=== PATIENT | female | born 1980 | race Caucasian/White ===

== ENCOUNTER 2021-09-20 22:13 | Emergency (ER) ==
[~2021-09-20] VITALS: Ht 162.6 cm; Wt 78.4 kg
[2021-09-20] MEDS ORDERED: LORA2TAB14 PO (22:30)
[2021-09-20] MEDS ORDERED: FAMO40TA3 PO (22:30)
[2021-09-20] MEDS ORDERED: ACET-683 PO (22:30)
[2021-09-20] MEDS ORDERED: GAST100C PO (22:30)
[2021-09-20] MEDS ORDERED: HYDR-3363 PO (22:30)
[2021-09-20] MEDS ORDERED: GOOD1POW4 PO (22:30)
[2021-09-20] MEDS ORDERED: TRAM50TA2 PO (22:41)
[2021-09-20] MEDS ORDERED: diphenhydramine IV (22:41)
== END 2021-09-21 00:50 | disposition left against medical advice (07) ==
LOC: M ED 22:13
DX: Z53.21 Procedure and treatment not carried out due to patient leaving prior to being seen by health care provider (principal)

== ENCOUNTER 2021-12-01 05:56 | Inpatient (IN) | payer BC ==
[~2021-12-01] VITALS: Ht 165.1 cm; Wt 80.8 kg
[~2021-12-01 05:56] MED LIST: ACET-683 PO; FAMO40TA3 PO; GAST100C PO; GOOD1POW4 PO; HYDR-3363 PO; LORA2TAB14 PO; TRAM50TA2 PO; diphenhydramine IV
[2021-12-01 08:30] LABS: RSV AMPLIFICATION NEGATIVE (NEGATIVE)
[2021-12-01 10:28] LABS: BASO % 0.2 % (0.0-1.0); HEMATOCRIT 40.5 % (36.0-47.0); HEMOGLOBIN 13.6 g/dl (12.0-15.5); LYMPH # 0.5 10^3/uL (1.5-5.0); MEAN CORPUSCULAR HEMOGLOBIN 28.5 pg (27.0-33.0); MEAN CORPUSCULAR HGB CONC 33.6 g/dl (32.0-36.5); MEAN CORPUSCULAR VOLUME 84.7 fl (80.0-96.0); MONO # 0.9 10^3/uL (0.0-0.8); MONO % 7.7 % (2.0-8.0); NEUTROPHILS # 9.7 10^3/uL (1.5-8.5); NEUTROPHILS % 87.1 % (36.0-66.0); PLATELET COUNT, AUTOMATED 213 10^3/uL (150-450); RED BLOOD COUNT 4.78 10^6/uL (4.00-5.40); WHITE BLOOD COUNT 11.2 10^3/uL (4.0-10.0)
[2021-12-01] MEDS ORDERED: NS 1,000 ML IV ONE ×2 (11:25→19:00)
[2021-12-01 12:06] LABS: ERYTHROCYTE SEDIMENTATION RATE 6 mm/hr (0-20)
[2021-12-01] MEDS ORDERED: ceFAZolin SOD 2 GM in IV 1 EA IV ONE (12:25)
[2021-12-01 15:18] LABS: ALBUMIN 3.7 GM/DL (3.2-5.2); ALT/SGPT 218 U/L (12-78); BILIRUBIN,DIRECT 0.2 MG/DL (0.0-0.2); BILIRUBIN,TOTAL 0.8 MG/DL (0.2-1.0); BLOOD UREA NITROGEN 14 MG/DL (7-18); C REACTIVE PROTEIN QUANTITATIV 4.61 MG/DL (0.00-0.30); CALCIUM LEVEL 8.9 MG/DL (8.5-10.1); CARBON DIOXIDE LEVEL 24 MEQ/L (21-32); CHLORIDE LEVEL 107 MEQ/L (98-107); CREATININE FOR GFR 1.03 MG/DL (0.55-1.30); GLOMERULAR FILTRATION RATE > 60.0 (>58); GLUCOSE, FASTING 113 MG/DL (70-100); POTASSIUM SERUM 3.9 MEQ/L (3.5-5.1); SODIUM LEVEL 138 MEQ/L (136-145); TOTAL PROTEIN 7.3 GM/DL (6.4-8.2)
[2021-12-01] MEDS ORDERED: NORCO, ANEXSIA 5/325MG TABLET (HYDROcodone/ACETAMINOPHEN) PO ONE (16:05)
[2021-12-01] MEDS ORDERED: ceFAZolin 1GM VIAL (J0690 PER 500MG) IM ONE (16:05)
[2021-12-01] MEDS ORDERED: ACETAMINOPHEN TAB 650MG DOSE (2X325MG) PO PRN (19:20)
[2021-12-01] MEDS ORDERED: LINEZOLID 600 MG in IV 1 EA IV ONE (20:05)
[2021-12-01] MEDS ORDERED: FAMO20TA4 PO (20:13)
[2021-12-01] MEDS ORDERED: PATIENT COMMENT (20:13)
[2021-12-01] MEDS ORDERED: HOME MED LIST COMPLETE! XX SCH (20:15)
[2021-12-01] MEDS ORDERED: FAMOTIDINE 20MG/2ML VIAL IVP PRN (20:30)
[2021-12-01] MEDS: LORazepam 2 MG/ML VIAL IV PRN (21:40)
[2021-12-01] MEDS: diphenhydrAMINE 50MG/ML VIAL (J1200) IV PRN (21:46)
[2021-12-01] MEDS: PIPERACILLIN/TAZOBACTAM SOD 3.375 GM in D5W MINI-BAG PLUS 50 ML IV SCH (21:54)
[2021-12-01 22:44] VITALS: BP 146/64
[2021-12-02] MEDS ORDERED: FAMOTIDINE PO PRN
[2021-12-02] MEDS: NS 1,000 ML IV SCH ×3 (00:54→13:45)
[2021-12-02] MEDS ORDERED: ceFAZolin SOD 2 GM in IV 1 EA IV SCH (01:00)
[2021-12-02] MEDS: FAMOTIDINE 20MG/2ML VIAL IVP PRN ×4 (04:56→21:46)
[2021-12-02] MEDS: LORazepam 2 MG/ML VIAL IV PRN ×3 (04:56→21:45)
[2021-12-02] MEDS: diphenhydrAMINE 50MG/ML VIAL (J1200) IV PRN ×4 (04:56→21:46)
[2021-12-02] MEDS: PIPERACILLIN/TAZOBACTAM SOD 3.375 GM in D5W MINI-BAG PLUS 50 ML IV SCH ×4 (05:14→22:28)
[2021-12-02 07:03] LABS: HEMATOCRIT 33.1 % (36.0-47.0); MEAN CORPUSCULAR HEMOGLOBIN 28.5 pg (27.0-33.0); MEAN CORPUSCULAR HGB CONC 33.2 g/dl (32.0-36.5); MEAN CORPUSCULAR VOLUME 85.8 fl (80.0-96.0); PLATELET COUNT, AUTOMATED 178 10^3/uL (150-450); RED BLOOD COUNT 3.86 10^6/uL (4.00-5.40); WHITE BLOOD COUNT 4.9 10^3/uL (4.0-10.0)
[2021-12-02 07:23] LABS: CALCIUM LEVEL 7.7 MG/DL (8.5-10.1); CREATININE FOR GFR 1.07 MG/DL (0.55-1.30); GLOMERULAR FILTRATION RATE 59.6 (>58); POTASSIUM SERUM 3.4 MEQ/L (3.5-5.1)
[2021-12-02] MEDS: LORAZEPAM PO SCH ×3 (09:26→21:12)
[2021-12-02 10:20] LABS: ALBUMIN 2.8 GM/DL (3.2-5.2); BILIRUBIN,DIRECT 0.2 MG/DL (0.0-0.2); BILIRUBIN,TOTAL 0.4 MG/DL (0.2-1.0); TOTAL PROTEIN 6.2 GM/DL (6.4-8.2)
[2021-12-02 11:09] LABS: HEPATITIS B CORE ANTIBODY IGM NEGATIVE (NEGATIVE); HEPATITIS B SURFACE ANTIGEN NEGATIVE (NEGATIVE); HEPATITIS C VIRUS ABY INDEX 0.1 INDEX (<0.8)
[2021-12-02] MEDS: HYDROXYZINE PO PRN ×2 (13:50→21:46)
[2021-12-02 14:00] VITALS: BP 143/91
[2021-12-02 16:01] LABS: BASO % 0.2 % (0.0-1.0); EOS # 0.1 10^3/uL (0.0-0.5); EOS % 1.5 % (0.0-3.0); LYMPH # 0.9 10^3/uL (1.5-5.0); LYMPH % 15.1 % (24.0-44.0); MONO # 0.5 10^3/uL (0.0-0.8); NEUTROPHILS # 4.4 10^3/uL (1.5-8.5); NEUTROPHILS % 73.9 % (36.0-66.0)
[2021-12-02] MEDS: CROMOLYN PO SCH ×2 (16:39→21:12)
[2021-12-02 22:00] VITALS: BP 154/71
[2021-12-03] MEDS: LORazepam 2 MG/ML VIAL IV PRN ×4 (04:20→22:25)
[2021-12-03] MEDS: PIPERACILLIN/TAZOBACTAM SOD 3.375 GM in D5W MINI-BAG PLUS 50 ML IV SCH ×4 (04:20→22:24)
[2021-12-03] MEDS: diphenhydrAMINE 50MG/ML VIAL (J1200) IV PRN ×4 (04:20→22:24)
[2021-12-03] MEDS: FAMOTIDINE 20MG/2ML VIAL IVP PRN ×2 (04:21→15:55)
[2021-12-03 06:00] VITALS: BP 129/75
[2021-12-03] MEDS: CROMOLYN PO SCH ×4 (07:30→20:36)
[2021-12-03 07:38] LABS: BASO % 0.4 % (0.0-1.0); EOS # 0.2 10^3/uL (0.0-0.5); EOS % 3.3 % (0.0-3.0); HEMATOCRIT 33.4 % (36.0-47.0); HEMOGLOBIN 11.2 g/dl (12.0-15.5); LYMPH # 1.2 10^3/uL (1.5-5.0); LYMPH % 25.2 % (24.0-44.0); MEAN CORPUSCULAR HEMOGLOBIN 28.3 pg (27.0-33.0); MEAN CORPUSCULAR HGB CONC 33.5 g/dl (32.0-36.5); MEAN CORPUSCULAR VOLUME 84.3 fl (80.0-96.0); MONO # 0.5 10^3/uL (0.0-0.8); MONO % 10.9 % (2.0-8.0); NEUTROPHILS # 2.7 10^3/uL (1.5-8.5); NEUTROPHILS % 59.8 % (36.0-66.0); PLATELET COUNT, AUTOMATED 179 10^3/uL (150-450); RED BLOOD COUNT 3.96 10^6/uL (4.00-5.40); WHITE BLOOD COUNT 4.6 10^3/uL (4.0-10.0)
[2021-12-03 08:07] LABS: ALBUMIN 3.1 GM/DL (3.2-5.2); ALT/SGPT 142 U/L (12-78); BILIRUBIN,DIRECT 0.1 MG/DL (0.0-0.2); BILIRUBIN,TOTAL 0.5 MG/DL (0.2-1.0); BLOOD UREA NITROGEN 8 MG/DL (7-18); C REACTIVE PROTEIN QUANTITATIV 3.07 MG/DL (0.00-0.30); CALCIUM LEVEL 8.2 MG/DL (8.5-10.1); CARBON DIOXIDE LEVEL 23 MEQ/L (21-32); CHLORIDE LEVEL 112 MEQ/L (98-107); CREATININE FOR GFR 0.98 MG/DL (0.55-1.30); GLOMERULAR FILTRATION RATE > 60.0 (>58); GLUCOSE, FASTING 101 MG/DL (70-100); MAGNESIUM LEVEL 2.1 MG/DL (1.8-2.4); POTASSIUM SERUM 3.8 MEQ/L (3.5-5.1); SODIUM LEVEL 142 MEQ/L (136-145); TOTAL PROTEIN 6.2 GM/DL (6.4-8.2)
[2021-12-03] MEDS: LORAZEPAM PO SCH ×3 (09:00→20:35)
[2021-12-03 14:45] VITALS: BP 140/93
[2021-12-03] MEDS: HYDROXYZINE PO PRN (19:44)
[2021-12-03 21:37] VITALS: BP 142/69
[2021-12-03] MEDS ORDERED: LORazepam 2 MG/ML VIAL As Ordered ONE (22:07)
[2021-12-04] MEDS ORDERED: LORazepam 2 MG/ML VIAL As Ordered ONE (04:30)
[2021-12-04] MEDS: PIPERACILLIN/TAZOBACTAM SOD 3.375 GM in D5W MINI-BAG PLUS 50 ML IV SCH (04:48)
[2021-12-04] MEDS: LORazepam 2 MG/ML VIAL IV PRN (04:48)
[2021-12-04] MEDS: FAMOTIDINE 20MG/2ML VIAL IVP PRN (04:48)
[2021-12-04] MEDS: diphenhydrAMINE 50MG/ML VIAL (J1200) IV PRN (04:48)
[2021-12-04 06:00] VITALS: BP 128/70
[2021-12-04 07:00] LABS: BASO % 0.4 % (0.0-1.0); EOS # 0.1 10^3/uL (0.0-0.5); EOS % 2.8 % (0.0-3.0); HEMATOCRIT 36.1 % (36.0-47.0); HEMOGLOBIN 11.8 g/dl (12.0-15.5); LYMPH # 1.6 10^3/uL (1.5-5.0); LYMPH % 34.4 % (24.0-44.0); MEAN CORPUSCULAR HEMOGLOBIN 27.5 pg (27.0-33.0); MEAN CORPUSCULAR HGB CONC 32.7 g/dl (32.0-36.5); MEAN CORPUSCULAR VOLUME 84.1 fl (80.0-96.0); MONO # 0.4 10^3/uL (0.0-0.8); MONO % 9.2 % (2.0-8.0); NEUTROPHILS # 2.4 10^3/uL (1.5-8.5); NEUTROPHILS % 52.5 % (36.0-66.0); PLATELET COUNT, AUTOMATED 217 10^3/uL (150-450); RED BLOOD COUNT 4.29 10^6/uL (4.00-5.40); WHITE BLOOD COUNT 4.6 10^3/uL (4.0-10.0)
[2021-12-04 07:21] LABS: ALT/SGPT 137 U/L (12-78); BLOOD UREA NITROGEN 10 MG/DL (7-18); CALCIUM LEVEL 8.4 MG/DL (8.5-10.1); CARBON DIOXIDE LEVEL 22 MEQ/L (21-32); CHLORIDE LEVEL 109 MEQ/L (98-107); CREATININE FOR GFR 1.03 MG/DL (0.55-1.30); GLOMERULAR FILTRATION RATE > 60.0 (>58); GLUCOSE, FASTING 94 MG/DL (70-100); SODIUM LEVEL 140 MEQ/L (136-145)
[2021-12-04 07:22] LABS: ALBUMIN 3.4 GM/DL (3.2-5.2); BILIRUBIN,DIRECT 0.2 MG/DL (0.0-0.2); BILIRUBIN,TOTAL 0.5 MG/DL (0.2-1.0); TOTAL PROTEIN 6.9 GM/DL (6.4-8.2)
== END 2021-12-04 10:10 | disposition home or self-care (01) | DRG 721 ==
LOC: M ED 05:56 → M ED INP 18:52 → ENRESERV 22:02 → M MS5PR 22:44
PROVIDERS: ADMIT Internal Medicine; ATTEND Internal Medicine
DX: T80.212A Local infection due to central venous catheter, initial encounter (principal); D89.40 Mast cell activation, unspecified; A41.9 Sepsis, unspecified organism; Q79.60 Ehlers-Danlos syndrome, unspecified; K76.89 Other specified diseases of liver; I34.1 Nonrheumatic mitral (valve) prolapse; Z91.52 Personal history of nonsuicidal self-harm; Q06.9 Congenital malformation of spinal cord, unspecified; Z90.49 Acquired absence of other specified parts of digestive tract; R74.01 Elevation of levels of liver transaminase levels; F32.A Depression, unspecified; F41.9 Anxiety disorder, unspecified; F10.11 Alcohol abuse, in remission; H53.2 Diplopia; L08.9 Local infection of the skin and subcutaneous tissue, unspecified; R32 Unspecified urinary incontinence; K59.09 Other constipation; R94.5 Abnormal results of liver function studies; Z20.822 Contact with and (suspected) exposure to COVID-19; Z88.1 Allergy status to other antibiotic agents; Z91.018 Allergy to other foods; M47.892 Other spondylosis, cervical region

== ENCOUNTER 2021-12-23 17:56 | Emergency (ER) | payer BC ==
[~2021-12-23] VITALS: Ht 165.1 cm; Wt 78.7 kg
[~2021-12-23 17:56] MED LIST changes: +FAMO20TA4 PO; +PATIENT COMMENT
[2021-12-23] MEDS ORDERED: SODIUM CHLORIDE 0.9% INJ 10 ML SYR IV PRN (22:20)
[2021-12-23 22:43] LABS: BASO % 0.3 % (0.0-1.0); EOS % 0.5 % (0.0-3.0); HEMATOCRIT 33.7 % (36.0-47.0); HEMOGLOBIN 11.3 g/dl (12.0-15.5); LYMPH # 1.9 10^3/uL (1.5-5.0); LYMPH % 25.3 % (24.0-44.0); MEAN CORPUSCULAR HEMOGLOBIN 28.5 pg (27.0-33.0); MEAN CORPUSCULAR HGB CONC 33.5 g/dl (32.0-36.5); MEAN CORPUSCULAR VOLUME 85.1 fl (80.0-96.0); MONO # 0.7 10^3/uL (0.0-0.8); MONO % 9.7 % (2.0-8.0); NEUTROPHILS # 4.8 10^3/uL (1.5-8.5); NEUTROPHILS % 63.9 % (36.0-66.0); PLATELET COUNT, AUTOMATED 214 10^3/uL (150-450); RED BLOOD COUNT 3.96 10^6/uL (4.00-5.40); WHITE BLOOD COUNT 7.5 10^3/uL (4.0-10.0)
[2021-12-23 23:03] LABS: ERYTHROCYTE SEDIMENTATION RATE 50 mm/hr (0-20)
[2021-12-23 23:15] LABS: ALBUMIN 3.3 GM/DL (3.2-5.2); BILIRUBIN,DIRECT 0.2 MG/DL (0.0-0.2); BILIRUBIN,TOTAL 0.3 MG/DL (0.2-1.0); C REACTIVE PROTEIN QUANTITATIV 6.06 MG/DL (0.00-0.30); TOTAL PROTEIN 6.6 GM/DL (6.4-8.2)
[2021-12-24 00:31] VITALS: BP 143/84
== END 2021-12-24 00:36 | disposition home or self-care (01) ==
LOC: M ED 17:56
DX: M25.50 Pain in unspecified joint (principal); I34.1 Nonrheumatic mitral (valve) prolapse; G93.5 Compression of brain; E88.9 Metabolic disorder, unspecified; F31.2 Bipolar disorder, current episode manic severe with psychotic features; F32.A Depression, unspecified; F41.9 Anxiety disorder, unspecified; K21.9 Gastro-esophageal reflux disease without esophagitis; Z86.73 Personal history of transient ischemic attack (TIA), and cerebral infarction without residual deficits; Z79.899 Other long term (current) drug therapy
CPT/HCPCS: 36415; 80047; 80076; 83605; 85025; 85652; 86140; 86618; 87798; 99283; J1642